=== PATIENT | female | born 1975 | race Caucasian/White ===

== ENCOUNTER → 2024-02-28 08:28 | Outpatient (REF) | payer OTHER, SELFPAY | LOC: WDC 08:28 | PROVIDERS: ATTENDING PHYSICIAN Nurse Practitioner | DX: Z12.31 Encounter for screening mammogram for malignant neoplasm of breast (principal) | CPT/HCPCS: 77063; 77067 ==

== ENCOUNTER → 2025-03-12 08:32 | Outpatient (REF) | payer OTHER, SELFPAY | LOC: WDC 08:32 | DX: Z12.31 Encounter for screening mammogram for malignant neoplasm of breast (principal) | CPT/HCPCS: 77063; 77067 ==

== ENCOUNTER 2025-09-01 23:13 | Emergency (ER) | payer OTHER, SELFPAY ==
--- NOTE | 2025-09-01 23:45 | ED.GENMED ---
History of Present Illness
General
Chief Complaint: Allergic Reaction
Source: patient and family
Exam Limitations: none
Time Seen by Provider: 09/01/25 23:27
Nursing documentation reviewed up to this point in time: agreed with
History of Present Illness
History of Present Illness:
From home 49 female swollen eyes exposed to cats which she is allergic to she took Benadryl did not use her EpiPen feels some scratchiness in her throat, she has asthma mixed connective tissue disorder swelling around her eyes no nausea or vomiting
Past History
Past History
ED Past Medical History: Asthma and Other (Pancreatitis, mixed connective tissue)
ED Past Surgical History: Cholecystectomy, (X2), Gynecological (D&C for DUB and a uterine ablation) and Orthopedic (Bunionectomy)
Social History
Tobacco: Non-smoker
Alcohol: Occasional
Drug: None
Personal:
Living: with family
Employment: Employed
Review of Systems
Review of Systems
All Other Systems: Not applicable
EENT: Reports sore throat and mouth swelling
Respiratory: Reports cough
Cardiac: Reports no symptoms
ABD/GI: Denies abdominal pain
Skin: Reports itching and other (Swelling around the eyes)
Phy Exam
Physical Exam
Physical Exam:
Physical Exam
General: no apparent distress, not acutely ill
Neck: Allergic like swelling around the eyes normal-sized tongue
Heart: s1/s2 regular rate and rhythm, no murmur. equal radial pulses.
Lungs: Faint wheeze
Neuro: alert and oriented. no focal neurological deficits
Psychiatric: well kept. interactive and cooperative
Extremities: no edema.
Course
Orders/Labs/Results
Orders:
Orders
09/01/25 23:33
EPINEPHrine PF [Adrenalin] 0.3 mg IM NOW STA
Ipratropium/Albuterol Sulfate [Duoneb] 3 ml INH R NOW STA
Prednisone [Deltasone] 50 mg PO NOW STA
Vital Signs
Initial and Last Documented VS:
Initial Vital Signs
Pulse Resp Pulse Ox
79 18 97
09/01/25 23:15 09/01/25 23:15 09/01/25 23:15
Last Documented Vital Signs
Pulse Resp BP Pulse Ox
86 16 93/61 98
09/02/25 01:00 09/02/25 01:00 09/02/25 01:00 09/02/25 01:00
MDM/Problems Addressed
Differential Diagnosis Includes:
Allergic reaction contact dermatitis and apply
MDM/Problems Addressed:
Allergic
Chronic conditions affecting care: Asthma
Acute Exacerbation and/or Progression of Chronic Illness: Asthma
*Pulse Oximetry
SaO2: 97
Oxygen Mode of Delivery: Room air
Patient hypoxic: no
*Critical Care Note
Total Time (30-74mins, 75-104mins- exclusive of procedures): Not Applicable
Update Note
Update Note:
Update 1:15 AM patient clinically improved
ED Attending Note
-
Portions of this chart may have been created with voice recognition software.� Occasional wrong word or��sound alike� substitutions may have occurred due to the inherent limitations of voice recognition software.
Discharge Plan
Departure
Patient Disposition: Home (Routine Discharge)
Date of Disposition: 09/02/25
Time of Disposition: 01:14
Patient with high blood pressure during this ER visit?: No
Condition: Good
Discharge Problem:
Allergic to cats
Instructions: Allergic reaction - ED (DC)
Prescriptions:
New
methylprednisolone [Medrol (Baldemar)] 4 mg tablets,dose pack
See Rx Instructions .ROUTE .COMPLEX Qty: 21 0RF
Rx Instructions:
for 6 days
No Action
cetirizine 10 MG tablet
10 mg PO PRN PRN (Reason: allergy)
ibuprofen 200 MG capsule
400 mg PO PRN PRN (Reason: Pain)
clonazepam 0.5 MG tablet
0.5 mg PO PRN PRN (Reason: myoclonis)
rimegepant [Nurtec ODT] 75 MG tablet,disintegrating
75 mg PO PRN PRN (Reason: migraine)
Patient Comments:
takes every other day took yesterday
ondansetron 4 MG tablet,disintegrating
4 mg PO TIDPRN PRN (Reason: nausea)
metoprolol succinate 25 MG tablet extended release 24 hr
25 mg PO DAILY Qty: 30 0RF
Referrals:
Jahaira Mcgarry DO [Family Provider, Family Practice]
Activity Restrictions/Additional Instructions:
Avoid cats, Benadryl every 6 hours as needed for itching or swelling Medrol Dosepak as prescribed
Interventions
Interventions:
*General Assessment Last Done: 09/01/25 23:57
*Neglect/Abuse Screening Last Done: 09/01/25 23:18
*ED COVID-19 Vaccine History Last Done: 09/01/25 23:57
*ED Influenza Vaccine History Last Done: 09/01/25 23:57
[facility] Fall Risk Assessment Tool Last Done: 09/01/25 23:57
*Risk Screen - Suicide (C-SSRS) Last Done: 09/01/25 23:18
ED- Cardiac Assessment Last Done: 09/02/25 00:02
ED- Pulmonary Assessment Last Done: 09/02/25 00:02
ED-Skin Assessment Last Done: 09/02/25 00:02
Discharge Date and Time
Print Language: HAITIAN
[2025-09-01 23:56] VITALS: BP 128/79
[2025-09-01 23:57] VITALS: BMI 28.2
[2025-09-01] MEDS: DELTASONE 50 MG PO (23:58)
[2025-09-02] VITALS: BP 133/85
[2025-09-02] MEDS: ADRENALIN 0.3 MG IM (00:01)
[2025-09-02] MEDS: DUONEB 3 ML INH (00:03)
--- NOTE | 2025-09-02 00:33 | EDRN ---
Swelling of pt's eyes improved. Pt says her chest is not as tight and her tongue no longer tingles. Pt able to speak more than whisper now.
[2025-09-02 01:00] VITALS: BP 93/61
== END 2025-09-02 01:23 | disposition home or self-care (01) ==
LOC: EMR 23:13
PROVIDERS: EMERGENCY PHYSICIAN Emergency Medicine; FAMILY PHYSICIAN Family Medicine
DX: R22.0 Localized swelling, mass and lump, head (principal); J02.9 Acute pharyngitis, unspecified; R05.9 Cough, unspecified; J30.81 Allergic rhinitis due to animal (cat) (dog) hair and dander; J45.909 Unspecified asthma, uncomplicated; L94.9 Localized connective tissue disorder, unspecified; Z90.49 Acquired absence of other specified parts of digestive tract; Z88.1 Allergy status to other antibiotic agents; Z88.5 Allergy status to narcotic agent; Z88.0 Allergy status to penicillin; Z88.2 Allergy status to sulfonamides; Z88.8 Allergy status to other drugs, medicaments and biological substances; Z91.048 Other nonmedicinal substance allergy status
CPT/HCPCS: 99284; 94640; 96372